=== PATIENT | female | born 1980 | race American Indian/Alaskan Native ===

== ENCOUNTER 2020-12-08 15:19 | Emergency (ER) | payer MEDICAID ==
[2020-12-08] MEDS ORDERED: Ondansetron 4 MG/2 ML SDV IVPUSH ONE ×2 (16:08→18:45)
--- NOTE | 2020-12-08 16:10 | EDM.PDOC ---
ED HPI GENERAL MEDICAL PROBLEM - General Chief Complaint: General Stated Complaint: MEDICAL [facility]IA [facility] Time Seen by Provider: 12/08/20 15:50 Source of Information: Reports: Patient, EMS, RN History Limitations: Reports: Uncooperative - History of Present Illness INITIAL COMMENTS - FREE TEXT/NARRATIVE: This is a 40 year old female [facility]. The pat ieayesha is not cooperative with history. She states that the [facility]iary made her come to the ED because she was vomiting. However, she does not answer further questions and continues to ask for a warm blanket. She admits to using heroin 2 days ago, but denies frequent heroin use. She does not respond when asked about other drug use or alcohol use. - Related Data Allergies Allergy/AdvReac Type Severity Reaction Status Date / Time nalbuphine [From Nubain] Allergy Vomiting Verified 12/08/20 15:27 Home Meds: Home Meds FLUoxetine HCl [Fluoxetine] 20 mg PO DAILY 12/08/20 [History] Gabapentin [Neurontin] 600 mg PO QID 12/08/20 [History] Levothyroxine 125 mcg PO DAILY 12/08/20 [History] Zolpidem [Ambien] 10 mg PO ASDIRECTED 12/08/20 [History] clonazePAM [Clonazepam] 1 mg PO QID PRN 12/08/20 [History] Past Medical History Endocrine/Metabolic History: Reports: Hypothyroidism - Past Surgical History GI Surgical History: Reports: Cholecystectomy Social & Family History - Tobacco Use Tobacco Use Status *Q: Light Tobacco User Years of Tobacco use: 26 Packs/Tins Daily: 0.4 - Caffeine Use Caffeine Use: Reports: None - Recreational Drug Use Recreational Drug Use: Yes Recreational Drug Type: Reports: Heroin, Other (see below) Other Recreational Drug Type: suboxone ED ROS GENERAL - Review of Systems Review Of Systems: Unable To Obtain Reason Not Obtained: Patient not cooperative ED EXAM, GENERAL - Physical Exam Exam: See Below Exam Limited By: Uncooperative General Appearance: Other (Sleeping soundly, but will wake to voice and respond to questions, only to then fall back asleep.) Eye Exam: Bilateral Eye: PERRL Head: Atraumatic, Normocephalic Neck: Supple, Full Range of Motion Respiratory/Chest: No Respiratory Distress, Lungs Clear, Normal Breath Sounds Cardiovascular: Regular Rate, Rhythm GI/Abdominal: Soft, Non-Tender Extremities: Normal Inspection, Normal Range of Motion, Non-Tender Neurological: Other (sleeping, but rouses easily to voice, falls back asleep easily.) Skin Exam: Warm, Dry, No Rash #1 Interpretation EKG Date: 12/08/20 Time: 17:55 Rhythm: Other (Sinus Bradycardia) Rate (Beats/Min): 43 P-Wave: Present ST-T: Normal Comparison: NA - No Prior EKG Course - Vital Signs Last Recorded V/S: Last Vital Signs Temp 96.9 F 12/08/20 15:31 Pulse 42 L 12/08/20 17:43 Resp 12 12/08/20 15:31 BP 155/76 H 12/08/20 17:43 Pulse Ox 98 12/08/20 17:43 - Orders/Labs/Meds Orders: Active Orders 24 hr Category Date Time Status EKG 12 Lead [EK] Stat Ther 12/08/20 17:34 Ordered Labs: Laboratory Tests 12/08/20 12/08/20 12/08/20 Range/Units 16:35 16:35 16:35 WBC 6.5 (4.5-11.0) K/uL RBC 5.17 (3.30-5.50) M/uL Hgb 15.3 H (12.0-15.0) g/dL Hct 45.7 (36.0-48.0) % MCV 88 (80-98) fL MCH 30 (27-31) pg MCHC 34 (32-36) % Plt Count 256 (150-400) K/uL Neut % (Auto) 80.2 H (36-66) % Lymph % (Auto) 16.1 L (24-44) % [place] % (Auto) 3.4 (2-6) % Eos % (Auto) 0.3 L (2-4) % Baso % (Auto) 0.0 (0-1) % Sodium 140 (140-148) mmol/L Potassium 4.2 (3.6-5.2) mmol/L Chloride 103 (100-108) mmol/L Carbon Dioxide 29 (21-32) mmol/L Anion Gap 8.0 (5.0-14.0) mmol/L BUN 10 (7-18) mg/dL Creatinine 0.6 (0.6-1.0) mg/dL Est Cr Clr Drug Dosing 136.13 mL/min Estimated GFR (MDRD) > 60 (>60) Glucose 119 H (74-106) mg/dL Calcium 8.8 (8.5-10.1) mg/dL Total Bilirubin 0.5 (0.2-1.0) mg/dL AST 37 (15-37) U/L ALT 46 (12-78) U/L Alkaline Phosphatase 121 H (46-116) U/L Total Protein 7.6 (6.4-8.2) g/dL Albumin 3.3 L (3.4-5.0) g/dL Globulin 4.3 H (2.3-3.5) g/dL Albumin/Globulin Ratio 0.8 L (1.2-2.2) Lipase (73-393) U/L TSH, Ultra Sensitive (0.358-3.740) uIU/mL HCG, Qual Negative Urine Color (YELLOW) Urine Appearance (CLEAR) Urine pH (5.0-8.0) Ur Specific Ucon (1.008-1.030) Urine Protein (NEGATIVE) mg/dL Urine Glucose (UA) (NEGATIVE) mg/dL Urine Ketones (NEGATIVE) mg/dL Urine Occult Blood (NEGATIVE) Urine Nitrite (NEGATIVE) Urine Bilirubin (NEGATIVE) Urine Urobilinogen (0.2-1.0) EU/dL Ur Leukocyte Esterase (NEGATIVE) Urine RBC (0-5) Urine WBC (0-5) Ur Epithelial Cells Amorphous Sediment Urine Bacteria Urine Mucus Urine Opiates Screen (NEGATIVE) Ur Oxycodone Screen (NEGATIVE) Urine Methadone Screen (NEGATIVE) Ur Propoxyphene Screen (NEGATIVE) Ur Barbiturates Screen (NEGATIVE) Ur Tricyclics Screen (NEGATIVE) Ur Phencyclidine Scrn (NEGATIVE) Ur Amphetamine Screen (NEGATIVE) U Methamphetamines Scrn (NEGATIVE) Urine MDMA Screen (NEGATIVE) U Benzodiazepines Scrn (NEGATIVE) U Cocaine Metab Screen (NEGATIVE) U Marijuana (THC) Screen (NEGATIVE) 12/08/20 12/08/20 12/08/20 Range/Units 16:35 16:35 18:41 WBC (4.5-11.0) K/uL RBC (3.30-5.50) M/uL Hgb (12.0-15.0) g/dL Hct (36.0-48.0) % MCV (80-98) fL MCH (27-31) pg MCHC (32-36) % Plt Count (150-400) K/uL Neut % (Auto) (36-66) % Lymph % (Auto) (24-44) % [place] % (Auto) (2-6) % Eos % (Auto) (2-4) % Baso % (Auto) (0-1) % Sodium (140-148) mmol/L Potassium (3.6-5.2) mmol/L Chloride (100-108) mmol/L Carbon Dioxide (21-32) mmol/L Anion Gap (5.0-14.0) mmol/L BUN (7-18) mg/dL Creatinine (0.6-1.0) mg/dL Est Cr Clr Drug Dosing mL/min Estimated GFR (MDRD) (>60) Glucose (74-106) mg/dL Calcium (8.5-10.1) mg/dL Total Bilirubin (0.2-1.0) mg/dL AST (15-37) U/L ALT (12-78) U/L Alkaline Phosphatase (46-116) U/L Total Protein (6.4-8.2) g/dL Albumin (3.4-5.0) g/dL Globulin (2.3-3.5) g/dL Albumin/Globulin Ratio (1.2-2.2) Lipase 32 L (73-393) U/L TSH, Ultra Sensitive 0.535 (0.358-3.740) uIU/mL HCG, Qual Urine Color Yellow (YELLOW) Urine Appearance Cloudy A (CLEAR) Urine pH 7.0 (5.0-8.0) Ur Specific Ucon 1.025 (1.008-1.030) Urine Protein Negative (NEGATIVE) mg/dL Urine Glucose (UA) Negative (NEGATIVE) mg/dL Urine Ketones 80 H (NEGATIVE) mg/dL Urine Occult Blood Negative (NEGATIVE) Urine Nitrite Negative (NEGATIVE) Urine Bilirubin Small H (NEGATIVE) Urine Urobilinogen 0.2 (0.2-1.0) EU/dL Ur Leukocyte Esterase Negative (NEGATIVE) Urine RBC 0-5 (0-5) Urine WBC 0-5 (0-5) Ur Epithelial Cells Moderate Amorphous Sediment Not seen Urine Bacteria Moderate Urine Mucus Moderate Urine Opiates Screen (NEGATIVE) Ur Oxycodone Screen (NEGATIVE) Urine Methadone Screen (NEGATIVE) Ur Propoxyphene Screen (NEGATIVE) Ur Barbiturates Screen (NEGATIVE) Ur Tricyclics Screen (NEGATIVE) Ur Phencyclidine Scrn (NEGATIVE) Ur Amphetamine Screen (NEGATIVE) U Methamphetamines Scrn (NEGATIVE) Urine MDMA Screen (NEGATIVE) U Benzodiazepines Scrn (NEGATIVE) U Cocaine Metab Screen (NEGATIVE) U Marijuana (THC) Screen (NEGATIVE) 12/08/20 Range/Units 18:41 WBC (4.5-11.0) K/uL RBC (3.30-5.50) M/uL Hgb (12.0-15.0) g/dL Hct (36.0-48.0) % MCV (80-98) fL MCH (27-31) pg MCHC (32-36) % Plt Count (150-400) K/uL Neut % (Auto) (36-66) % Lymph % (Auto) (24-44) % [place] % (Auto) (2-6) % Eos % (Auto) (2-4) % Baso % (Auto) (0-1) % Sodium (140-148) mmol/L Potassium (3.6-5.2) mmol/L Chloride (100-108) mmol/L Carbon Dioxide (21-32) mmol/L Anion Gap (5.0-14.0) mmol/L BUN (7-18) mg/dL Creatinine (0.6-1.0) mg/dL Est Cr Clr Drug Dosing mL/min Estimated GFR (MDRD) (>60) Glucose (74-106) mg/dL Calcium (8.5-10.1) mg/dL Total Bilirubin (0.2-1.0) mg/dL AST (15-37) U/L ALT (12-78) U/L Alkaline Phosphatase (46-116) U/L Total Protein (6.4-8.2) g/dL Albumin (3.4-5.0) g/dL Globulin (2.3-3.5) g/dL Albumin/Globulin Ratio (1.2-2.2) Lipase (73-393) U/L TSH, Ultra Sensitive (0.358-3.740) uIU/mL HCG, Qual Urine Color (YELLOW) Urine Appearance (CLEAR) Urine pH (5.0-8.0) Ur Specific Ucon (1.008-1.030) Urine Protein (NEGATIVE) mg/dL Urine Glucose (UA) (NEGATIVE) mg/dL Urine Ketones (NEGATIVE) mg/dL Urine Occult Blood (NEGATIVE) Urine Nitrite (NEGATIVE) Urine Bilirubin (NEGATIVE) Urine Urobilinogen (0.2-1.0) EU/dL Ur Leukocyte Esterase (NEGATIVE) Urine RBC (0-5) Urine WBC (0-5) Ur Epithelial Cells Amorphous Sediment Urine Bacteria Urine Mucus Urine Opiates Screen Negative (NEGATIVE) Ur Oxycodone Screen Negative (NEGATIVE) Urine Methadone Screen Negative (NEGATIVE) Ur Propoxyphene Screen Negative (NEGATIVE) Ur Barbiturates Screen Negative (NEGATIVE) Ur Tricyclics Screen Negative (NEGATIVE) Ur Phencyclidine Scrn Negative (NEGATIVE) Ur Amphetamine Screen Presumptive positive H (NEGATIVE) U Methamphetamines Scrn Presumptive positive H (NEGATIVE) Urine MDMA Screen Negative (NEGATIVE) U Benzodiazepines Scrn Presumptive positive H (NEGATIVE) U Cocaine Metab Screen Negative (NEGATIVE) U Marijuana (THC) Screen Negative (NEGATIVE) Meds: Medications Discontinued Medications Generic Name Dose Route Start Last Admin Trade Name Freq PRN Reason Stop Dose Admin Acetaminophen 650 mg 12/08/20 18:45 12/08/20 19:05 Acetaminophen 325 Mg Tab PO 12/08/20 18:46 650 mg NOW ONE Administration Sodium Chloride 1,000 mls @ 1,000 mls/hr 12/08/20 16:15 12/08/20 17:26 Normal Saline IV 1,000 mls/hr ASDIRECTED GILBERT Administration Ibuprofen 600 mg 12/08/20 18:45 12/08/20 19:05 Ibuprofen 600 Mg Tab PO 12/08/20 18:46 600 mg ONETIME ONE Administration Ondansetron HCl 4 mg 12/08/20 16:08 12/08/20 16:30 Ondansetron 4 Mg/2 Ml Sdv IVPUSH 12/08/20 16:09 Not Given ONETIME ONE Ondansetron HCl 4 mg 12/08/20 18:45 12/08/20 19:05 Ondansetron 4 Mg/2 Ml Sdv IVPUSH 12/08/20 18:46 4 mg ONETIME ONE Administration Departure - Departure Time of Disposition: 19:19 Disposition: Home, Self-Care 01 Clinical Impression: Vomiting - Discharge Information Instructions: Nausea and Vomiting, Adult, [id number] Referrals: PCP,None [Primary Care Provider] - Forms: ED Department Discharge Additional Instructions: Your labs and evaluation today has been unremarkable. I suspect that your symptoms are due to withdrawal from the suboxone that you have been taking. At this time there is no findings to suggest you need hospitalized and it is ok for you to be discharge. Please follow up in clinic with your primary care provider as soon as possible. Sepsis Event Note (ED) - Evaluation Sepsis Screening Result: No Definite Risk - Focused Exam Vital Signs: Vital Signs Temp Pulse Resp BP Pulse Ox 12/08/20 17:43 42 L 155/76 H 98 12/08/20 16:06 47 L 155/84 H 96 12/08/20 15:31 96.9 F 45 L 12 151/77 H 98 12/08/20 15:22 96.9 F 45 L 12 151/77 H 98 - Problem List Review Problem List Initiated/Reviewed/Updated: Yes - My Orders Last 24 Hours: My Active Orders 12/08/20 17:34 EKG 12 Lead [EK] Stat - Assessment/Plan Last 24 Hours: My Active Orders 12/08/20 17:34 EKG 12 Lead [EK] Stat Assessment:: This is a 40 year old female [facility] with [facility]. initially, she was sleeping and would not wake for more than a few seconds to reply to questions with short answers. She was providing a vague history initially as documented above. Labs were obtained and were unrevealing. Urine drug screen was positive for amphetamines and benzodiazepines. IVF and zofran were given. Patient was noted to have a HR in the upper 40's. EKG was obtained and showed a sinus bradycardia without other concerning symptoms. She is asymptomatic at this time. Upon reassessment, she is more arousable and provides additional history. She reports that she is feeling aching pain all over and is feeling nauseated and cold. She states that she has been using suboxone that is not prescribed to her, but hasn't had any for a few days. It is likely that her symptoms are due to withdrawal in additional to withdrawal from methamphetamines. Once awake and participating in interview and exam, she has a normal neurologic exam and a benign abdominal exam. She is feeling slightly improved after medications here. There is no indication for admission at this time and I think she is appropriate for discharge home with follow up [facility] [place] [facility] PCP.
[2020-12-08] MEDS ORDERED: Sodium Chloride 0.9% 1,000 ML IV SCH (16:15)
[2020-12-08] MEDS ORDERED: Ibuprofen 600 MG Tab PO ONE (18:45)
[2020-12-08] MEDS ORDERED: Acetaminophen 325 MG Tab PO ONE (18:45)
== END 2020-12-08 19:48 | disposition home or self-care (01) ==
LOC: JP.ED 15:19
DX: R11.10 Vomiting, unspecified (principal); E03.9 Hypothyroidism, unspecified; Z88.6 Allergy status to analgesic agent; Z79.899 Other long term (current) drug therapy
CPT/HCPCS: 36415; 80053; 80305; 81001; 83690; 84443; 84703; 85025; 93005; 96374; 99284; A9270; J2405; J7030

== ENCOUNTER 2023-09-29 07:57 | Emergency (ER) | payer MEDICAID ==
[2023-09-29 08:22] LABS: BASOPHILS ABSOLUTE AUTO 0.04 K/uL (0.00-0.10); BASOPHILS PERCENT AUTO 0.5 % (0.1-1.3); EOSINOPHILS ABSOLUTE AUTO 0.06 K/uL (0.00-0.40); EOSINOPHILS PERCENT AUTO 0.8 % (0.0-5.4); HEMATOCRIT 37.9 % (34.3-46.0); HEMOGLOBIN 13.2 g/dL (11.2-15.5); IMMATURE GRAN PERCENT AUTO 0.1 % (0.0-0.7); LYMPHOCYTES ABSOLUTE AUTO 1.61 K/uL (0.8-3.3); LYMPHOCYTES PERCENT AUTO 20.6 % (11.4-47.7); MEAN CORPUSCULAR HEMOGLOBIN 29.4 pg (31.6-35.5); MEAN CORPUSCULAR HGB CONC 34.8 g/dL (31.6-35.5); MEAN CORPUSCULAR VOLUME 84.4 fL (81.4-99.0); MONOCYTES ABSOLUTE AUTO 0.39 K/uL (0.20-0.90); NEUTROPHILS ABSOLUTE AUTO 5.69 K/uL (1.0-7.6); PLATELET COUNT,PLT 289 K/uL (130-375); RED BLOOD CELL COUNT 4.49 M/uL (3.77-5.24); WHITE BLOOD CELL COUNT,WBC 7.8 K/uL (3.2-11.0)
[2023-09-29 08:23] LABS: BASE EXCESS VENOUS 1.9 mm/L; BICARBONATE,VENOUS 25.6 mmol/L; CARBOXYHEMOGLOBIN 1.8 % (0.0-1.6); METHEMOGLOBIN 0.6 %; O2 SATURATION VENOUS 47.7; OXYHEMOGLOBIN 46.6 %; PCO2 VENOUS 38.9 mm/Hg; PH,VENOUS 7.435 (7.350-7.450); TOTAL HEMOGLOBIN 13.7 g/dL (12.0-16.0)
[2023-09-29] MEDS: Prochlorperazine 10 MG/2 ML SDV IVPUSH ONE (08:25)
[2023-09-29] MEDS: cloNIDine 0.1 MG Tab PO ONE (08:25)
[2023-09-29] MEDS: Sodium Chloride 0.9% 1,000 ML IV ONE (08:25)
[2023-09-29 08:26] LABS: IMMATURE GRAN ABSOLUTE AUTO 0.01 K/uL (0.00-0.23); PO2 VENOUS 26.3 mm/Hg
[2023-09-29 08:40] LABS: INR 1.1
[2023-09-29 08:57] LABS: A/G RATIO 0.9 (1.2-2.2); ALANINE AMINOTRANSFERASE,ALT 28 U/L (12-78); ALBUMIN 3.7 g/dL (3.4-5.0); ALKALINE PHOSPHATASE 102 U/L (46-116); ANION GAP 8.2 mmol/L (5.0-14.0); ASPARTATE AMNIOTRANSFERASE,AST 20 U/L (15-37); BILIRUBIN TOTAL 0.8 mg/dL (0.2-1.0); BLOOD UREA NITROGEN,BUN 12 mg/dL (7-18); CALCIUM 9.2 mg/dL (8.5-10.1); CARBON DIOXIDE,CO2 26 mmol/L (21-32); CHLORIDE,CL 106 mmol/L (100-108); CREATININE 0.9 mg/dL (0.6-1.0); EST CRCL DRUG DOSING (CG) 82.98 mL/min; ESTIMATED GFR 82 mL/min (>60); GLUCOSE RANDOM 132 mg/dL (74-106); POTASSIUM,K 3.7 mmol/L (3.6-5.2); SODIUM,NA 140 mmol/L (140-148)
[2023-09-29 09:03] LABS: CORONAVIRUS COVID-19 NAA NEGATIVE (NEGATIVE); INFLUENZA A NAA NEGATIVE (NEGATIVE); INFLUENZA B NAA NEGATIVE (NEGATIVE); RESPIRATORY SYNCYTIAL VIR NAA NEGATIVE (NEGATIVE)
== END 2023-09-29 10:00 | disposition home or self-care (01) ==
LOC: JP.ED 07:57
DX: F19.230 Other psychoactive substance dependence with withdrawal, uncomplicated (principal); E03.9 Hypothyroidism, unspecified; Z79.899 Other long term (current) drug therapy; Z88.8 Allergy status to other drugs, medicaments and biological substances
CPT/HCPCS: 0241U; 36415; 80053; 80307; 82550; 82803; 83605; 83690; 84443; 84484; 85025; 85610; 96361; 96374; 99284; A9270; J0780; J7030

== ENCOUNTER 2024-02-08 11:57 | Emergency (ER) | payer MEDICAID ==
[2024-02-08 12:38] LABS: BASOPHILS ABSOLUTE AUTO 0.03 K/uL (0.00-0.10); BASOPHILS PERCENT AUTO 0.3 % (0.1-1.3); EOSINOPHILS ABSOLUTE AUTO 0.04 K/uL (0.00-0.40); EOSINOPHILS PERCENT AUTO 0.4 % (0.0-5.4); HEMATOCRIT 40.2 % (34.3-46.0); HEMOGLOBIN 13.9 g/dL (11.2-15.5); IMMATURE GRAN PERCENT AUTO 0.2 % (0.0-0.7); LYMPHOCYTES ABSOLUTE AUTO 1.67 K/uL (0.8-3.3); LYMPHOCYTES PERCENT AUTO 17.9 % (11.4-47.7); MEAN CORPUSCULAR HEMOGLOBIN 28.7 pg (31.6-35.5); MEAN CORPUSCULAR HGB CONC 34.6 g/dL (31.6-35.5); MEAN CORPUSCULAR VOLUME 82.9 fL (81.4-99.0); MONOCYTES ABSOLUTE AUTO 0.49 K/uL (0.20-0.90); MONOCYTES PERCENT AUTO 5.2 % (3.3-12.6); NEUTROPHILS ABSOLUTE AUTO 7.09 K/uL (1.0-7.6); PLATELET COUNT,PLT 383 K/uL (130-375); RED BLOOD CELL COUNT 4.85 M/uL (3.77-5.24); WHITE BLOOD CELL COUNT,WBC 9.3 K/uL (3.2-11.0)
[2024-02-08 12:39] LABS: IMMATURE GRAN ABSOLUTE AUTO 0.02 K/uL (0.00-0.23)
[2024-02-08 13:08] LABS: A/G RATIO 0.7 (1.2-2.2); ALANINE AMINOTRANSFERASE,ALT 28 U/L (12-78); ALBUMIN 3.8 g/dL (3.4-5.0); ALKALINE PHOSPHATASE 121 U/L (46-116); ANION GAP 12.6 mmol/L (5.0-14.0); ASPARTATE AMNIOTRANSFERASE,AST 20 U/L (15-37); BILIRUBIN TOTAL 0.6 mg/dL (0.2-1.0); BLOOD UREA NITROGEN,BUN 10 mg/dL (7-18); CALCIUM 9.4 mg/dL (8.5-10.1); CARBON DIOXIDE,CO2 27 mmol/L (21-32); CHLORIDE,CL 103 mmol/L (100-108); CREATININE 0.7 mg/dL (0.6-1.0); EST CRCL DRUG DOSING (CG) 109.41 mL/min; ESTIMATED GFR 111 mL/min (>60); GLUCOSE RANDOM 110 mg/dL (74-106); POTASSIUM,K 3.6 mmol/L (3.6-5.2); SODIUM,NA 139 mmol/L (140-148)
[2024-02-08 13:09] LABS: TSH ULTRASENSITIVE 1.54 uIU/mL (0.358-3.740)
== END 2024-02-08 14:09 | disposition home or self-care (01) ==
LOC: JP.ED 11:57
DX: R46.89 Other symptoms and signs involving appearance and behavior (principal); E03.9 Hypothyroidism, unspecified; Z88.8 Allergy status to other drugs, medicaments and biological substances; Z79.899 Other long term (current) drug therapy; Z90.49 Acquired absence of other specified parts of digestive tract
CPT/HCPCS: 36415; 80053; 80143; 80179; 80307; 84443; 85025; 99283; 99284

== ENCOUNTER 2024-02-10 06:26 | Emergency (ER) | payer MEDICAID ==
[2024-02-10 06:43] LABS: APPEARANCE,URINE SLIGHTLY CLOUDY (CLEAR); BILIRUBIN,URINE NEGATIVE (NEGATIVE); COLOR,URINE YELLOW (YELLOW); GLUCOSE,URINE NEGATIVE (NEGATIVE); KETONES,URINE NEGATIVE (NEGATIVE); LEUKOCYTE ESTERASE,URINE NEGATIVE (NEGATIVE); NITRITE,URINE NEGATIVE (NEGATIVE); OCCULT BLOOD,URINE NEGATIVE (NEGATIVE); PH,URINE 8.5 (5.0-8.0); PROTEIN,URINE NEGATIVE (NEGATIVE); UROBILINOGEN,URINE 0.2 EU/dL (0.2-1.0)
[2024-02-10 06:56] LABS: BASOPHILS PERCENT AUTO 0.2 % (0.1-1.3); EOSINOPHILS PERCENT AUTO 0.1 % (0.0-5.4); HEMATOCRIT 36.1 % (34.3-46.0); HEMOGLOBIN 12.5 g/dL (11.2-15.5); IMMATURE GRAN PERCENT AUTO 0.2 % (0.0-0.7); LYMPHOCYTES ABSOLUTE AUTO 1.19 K/uL (0.8-3.3); LYMPHOCYTES PERCENT AUTO 14.5 % (11.4-47.7); MEAN CORPUSCULAR HEMOGLOBIN 28.4 pg (31.6-35.5); MEAN CORPUSCULAR HGB CONC 34.6 g/dL (31.6-35.5); MONOCYTES PERCENT AUTO 2.4 % (3.3-12.6); NEUTROPHILS ABSOLUTE AUTO 6.79 K/uL (1.0-7.6); NEUTROPHILS PERCENT AUTO 82.6 % (40.0-78.1); PLATELET COUNT,PLT 359 K/uL (130-375); WHITE BLOOD CELL COUNT,WBC 8.2 K/uL (3.2-11.0)
[2024-02-10 06:57] LABS: BASOPHILS ABSOLUTE AUTO 0.02 K/uL (0.00-0.10); EOSINOPHILS ABSOLUTE AUTO 0.01 K/uL (0.00-0.40); IMMATURE GRAN ABSOLUTE AUTO 0.02 K/uL (0.00-0.23)
[2024-02-10] MEDS: Sodium Chloride 0.9% 1,000 ML IV SCH (06:57)
[2024-02-10 06:58] LABS: AMORPHOUS SEDIMENT,URINE MANY; AMPHETAMINES SCREEN, URINE NEGATIVE (NEGATIVE); BACTERIA,URINE NOT SEEN; BARBITURATE SCREEN,URINE NEGATIVE (NEGATIVE); BENZODIAZEPINES SCREEN,URINE NEGATIVE (NEGATIVE); EPITHELIAL CELLS,URINE MODERATE; METHADONE SCREEN, URINE NEGATIVE (NEGATIVE); METHAMPHETAMINES SCREEN, URINE NEGATIVE (NEGATIVE); MUCUS,URINE FEW; OXYCODONE SCREEN,URINE NEGATIVE (NEGATIVE); PROPOXYPHENE SCREEN,URINE NEGATIVE (NEGATIVE); RBC,URINE 0-5 (0-5); THC SCREEN,URINE 50 NG/ML NEGATIVE (NEGATIVE); WBC,URINE 0-5 (0-5)
[2024-02-10 07:11] LABS: BLOOD UREA NITROGEN,BUN 14 mg/dL (7-18); CALCIUM 9.4 mg/dL (8.5-10.1); CARBON DIOXIDE,CO2 25 mmol/L (21-32); CHLORIDE,CL 104 mmol/L (100-108); CREATININE 0.8 mg/dL (0.6-1.0); ESTIMATED GFR 94 mL/min (>60); GLUCOSE RANDOM 173 mg/dL (74-106); POTASSIUM,K 3.6 mmol/L (3.6-5.2); SODIUM,NA 139 mmol/L (140-148)
[2024-02-10 07:12] LABS: ANION GAP 13.6 mmol/L (5.0-14.0)
[2024-02-10] MEDS: droPERidol 5 MG/2 ML SDV IVPUSH ONE (07:13)
[2024-02-10] MEDS: Sodium Chloride 0.9% 80 ML IV SCH (08:56)
[2024-02-10] MEDS: Iopamidol 612 MG/ML 100 ML Bottle IV ONE (08:56)
== END 2024-02-10 11:10 | disposition home or self-care (01) ==
LOC: JP.ED 06:26
DX: R11.2 Nausea with vomiting, unspecified (principal); Z90.49 Acquired absence of other specified parts of digestive tract; Z88.8 Allergy status to other drugs, medicaments and biological substances
CPT/HCPCS: 36415; 74177; 80048; 80305; 81001; 83690; 85025; 96361; 96374; 99284; J1790; J3490; J7030; Q9967